=== PATIENT | female | born 1980 | race Caucasian/White ===

== ENCOUNTER 2019-10-20 22:02 | Emergency (ER) | payer SELFPAY ==
[~2019-10-20] VITALS: Ht 167.6 cm; Wt 64.0 kg
[2019-10-21] MEDS ORDERED: KETOROLAC 60MG/2ML VIAL IM ONE (00:30)
[2019-10-21 03:13] VITALS: BP 141/87
== END 2019-10-21 03:14 | disposition home or self-care (01) ==
LOC: ER 22:02
DX: S80.11XA Contusion of right lower leg, initial encounter (principal); M54.2 Cervicalgia; M54.9 Dorsalgia, unspecified; V49.88XA Car occupant (driver) (passenger) injured in other specified transport accidents, initial encounter; Y93.89 Activity, other specified; Y92.89 Other specified places as the place of occurrence of the external cause; Y99.8 Other external cause status
CPT/HCPCS: 71045; 72125; 73590; 81025; 96372; 99284; J1885